=== PATIENT | male | born 1975 | race Caucasian/White ===

== ENCOUNTER → 2016-05-28 | Outpatient (CLI) | payer OTHER ==
--- NOTE | ~2016-05-28 | PUL ---
PATIENT'S NAME: AMARILIS WEISS [facility] AGE: 40 Y [address] ROOM: [place] [address] LOCATION: [facility] ADMIT DATE: 05/28/2016 Pulmonary DISCHARGE DATE: FAMILY PHYSICIAN: Rodo Mcdowell MD ATTENDING PHYSICIAN: Giselle Medina NAME OF PROCEDURE: Sleep study PROCEDURE DATE: 05/28/16 TECH: LOTUS Anne TEST #: [facility]# [id number] TECHNICAL PARAMETERS: The patient was studied using [employer] 10/20 measuring system. While the patient was studied, there was continuous monitoring of EEG (8 leads), EOG (2 leads), EKG (3 leads), submental EMG (3 leads), tibial (4 leads), respiratory inductive plethysmography (RIP) for thoracic and abdominal effort, oral and nasal airflow with a thermocouple and pressure transducer, and oximetry. The surveillance camera technician also performed visual and auditory observations noting things like body position, patient's status, breath sounds, artifact, snoring level and patient comments. Continuous sound was monitored using a 2-way speaker system and video monitoring was performed using an infrared camera. Review of the entire study was performed epoch by epoch utilizing a single epoch and multiple epoch capability sleep system. MEDICAL HISTORY: The patient is a 40-year-old massively obese gentleman with daytime sleepiness and snoring. SLEEP STAGE SUMMARY: The patient was studied for 410 minutes of which he slept 337 minutes. He fell asleep in 6 minutes and slept for 82% of the night. Sleep architecture revealed a mild decline in slow wave sleep. RESPIRATORY SUMMARY: Oxygen saturations ranged from 89-94%. This study was done to titrate CPAP which was started at 8 cm and titrated to 12 cm with good control of the respiratory events. EKG SUMMARY: No dysrhythmias were noted. LIMB MOVEMENT SUMMARY: No clinically relevant periodic limb movements were noted. SUMMARY: Obstructive sleep apnea responsive to CPAP at 12 cm. PLAN: Patient will receive results from the ordering provider. PATIENT'S NAME: AMARILIS WEISS [facility] AGE: 40 Y [address] ROOM: [place] [address] LOCATION: [facility] ADMIT DATE: 05/28/2016 Pulmonary DISCHARGE DATE: FAMILY PHYSICIAN: Rodo Mcdowell MD ATTENDING PHYSICIAN: Giselle Medina GISELLE ROJAS MD DEC/ /[id number] dtt: 06/03/16 1743 , Giselle Rojas dtd: 06/01/16 1115
== END | disposition disaster alternative care site (69) ==
LOC: GSLP 20:20
DX: G47.33 Obstructive sleep apnea (adult) (pediatric) (principal); G47.10 Hypersomnia, unspecified